=== PATIENT | male | born 1990 | race Two or more races ===

== ENCOUNTER 2018-08-29 17:40 | Emergency (ER) | payer SELFPAY ==
[~2018-08-29] VITALS: Ht 167.6 cm; Wt 72.6 kg
[2018-08-29 18:00] VITALS: BP 128/73
[2018-08-29] MEDS ORDERED: LORazepam 1mg tab ORAL ONE (18:15)
--- NOTE | 2018-08-29 18:20 | Emergency Room Report ---
History of Present Illness General Chief Complaint: General Complaint Source: Patient Present Illness HPI 28-year-old male presents to the emergency department for acute onset of sleepiness, chest tightness, shortness of breath, rapid breathing, numbness and tingling in the bilateral hands as well as cramping of his hands when he was driving in his vehicle and stuck in traffic. Patient denies similar symptoms happening in the past. Patient also reports that he has a itchy rash which he did apply cream to and for the most part has resolved. Patient denies swelling of the lips or tongue, denies throat discomfort. Denies illicit drug use he does report cannabis use. Pt. reports fear of driving now. He states that he walked here to the ED. Allergies: Coded Allergies: DOXYCYCLINE (Verified Allergy, Unknown, 08/29/18) Patient History Past Medical History: see triage record Past Surgical History: none Pertinent Family History: none Reviewed Nursing Documentation: PMH: Agreed; PSxH: Agreed Nursing Documentation-PMH Past Medical History: No Stated History Review of Systems All Other Systems: negative except mentioned in HPI Physical Exam Vital Signs Date Time Temp Pulse Resp B/P (MAP) Pulse Ox O2 Delivery O2 Flow Rate FiO2 08/29/18 17:49 98.1 102 18 133/84 98 Room Air Sp02 EP Interpretation: reviewed, normal General Appearance: no apparent distress, alert, GCS 15, non-toxic Head: normocephalic, atraumatic Eyes: bilateral eye normal inspection, bilateral eye PERRL ENT: hearing grossly normal, no angioedema, normal voice, other - no swelling of the lips or tongue Neck: full range of motion Respiratory: chest non-tender, lungs clear, normal breath sounds, no respiratory distress, no accessory muscle use, no wheezing, speaking full sentences, other - normal resp. rate. Cardiovascular #1: regular rate, rhythm, tachycardia, other Cardiovascular #2: 2+ radial (R), 2+ radial (L) Gastrointestinal: non tender, soft Rectal: deferred Genitourinary: normal inspection Musculoskeletal: back normal, gait/station normal, normal range of motion, non- tender Neurologic: alert, oriented x3, responsive, motor strength/tone normal, sensory intact, normal gait, speech normal, grossly normal Psychiatric: judgement/insight normal, memory normal, no suicidal/homicidal ideation, anxious Skin: normal color, warm/dry, well hydrated, rash - very faint urticarial appearance to the wrists bilaterally otherwise no lesions/rash noted elsewhere on the body. no blisters or vesicles. Medical Decision Making PA Attestation Dr. Chanel is my supervising Physician whom patient management has been discussed with. Diagnostic Impression: Primary Impression: Hyperventilation syndrome Additional Impression: Amphetamine adverse reaction Qualified Codes: T43.625A - Adverse effect of amphetamines, initial encounter ER Course 28-year-old male presents to the emergency department for acute onset of sleepiness, chest tightness, shortness of breath, rapid breathing, numbness and tingling in the bilateral hands as well as cramping of his hands when he was driving in his vehicle and stuck in traffic. Patient denies similar symptoms happening in the past. Patient also reports that he has a itchy rash which he did apply cream to and for the most part has resolved. Patient denies swelling of the lips or tongue, denies throat discomfort. Denies illicit drug use he does report cannabis use. Pt. reports fear of driving now. He states that he walked here to the ED. Ddx considered but are not limited to anxiety, [place], PE, asthma, thyroid storm, hyperthyroid, EPS Vital signs: are WNL- mildly tachycardic at 102, pt. is afebrile, oxygenating at 98 % on RA H&PE are most consistent with anxiety attack ORDERS: -UDS: Positive for Amphetamines and THC ED INTERVENTIONS: - 1mg Ativan PO -Discussed with patient that his urine revealed Amphetamine use. D.w pt that this may have caused his symptoms. Also d/w pt. to stop illicit drug use. DISCHARGE: At this time pt. is stable for d/c to home. Will provide printed patient care instructions, and any necessary prescriptions. Care plan and follow up instructions have been discussed with the patient prior to discharge. Last Vital Signs Date Time Temp Pulse Resp B/P (MAP) Pulse Ox O2 Delivery O2 Flow Rate FiO2 08/29/18 17:49 98.1 102 18 133/84 98 Room Air Disposition: HOME, SELF-CARE Condition: Stable Scripts No Active Prescriptions or Reported Meds Additional Instructions: Take medications as directed. Follow up with a Primary Care Provider in 3-5 days, even if your symptoms have resolved. --Please review list of primary care clinics, if you do not already have a primary care provider Return sooner to ED if new symptoms occur, or current symptoms become worse. Do not drink alcohol, drive, or operate heavy machinery while taking Tramadol as this may cause drowsiness. - Please note that this Emergency Department Report was dictated using [employer] planning director technology software, occasionally this can lead to erroneous entry secondary to interpretation by the dictation equipment. Kira Cruz Aug 29, 2018 18:20
[2018-08-29 20:45] VITALS: BP 134/71
[2018-08-29 21:34] VITALS: BP 128/73
== END 2018-08-29 21:35 | disposition home or self-care (01) ==
LOC: EMR 18:22
DX: F45.8 Other somatoform disorders (principal); T43.625A Adverse effect of amphetamines, initial encounter; Z88.1 Allergy status to other antibiotic agents
CPT/HCPCS: 80307; 99283